=== PATIENT | male | born 1975 | race Two or more races ===

== ENCOUNTER 2020-02-29 12:23 | Emergency (ER) | payer BC, OTHER ==
[~2020-02-29] VITALS: Ht 175.3 cm; Wt 122.5 kg
[2020-02-29 13:05] VITALS: BP 144/94
[2020-02-29] MEDS ORDERED: DexAMETHasone SOD PHOS 10MG/1ML VIAL INJ IM ONE (13:15)
[2020-02-29] MEDS ORDERED: cefTRIAXone SOD 1,000 MG VL IM ONE (13:15)
== END 2020-02-29 14:08 | disposition home or self-care (01) ==
LOC: ER 12:23
DX: U07.1 COVID-19 (principal); J12.82 Pneumonia due to coronavirus disease 2019
CPT/HCPCS: 71045; 93005; 96372; 99284; J0696; J1100